=== PATIENT | male | born 1985 | race Hispanic/Latino ===

== ENCOUNTER 2023-11-17 18:17 | Emergency (ER) | payer OTHER, SELFPAY ==
[~2023-11-17 18:17] MED LIST: Iopamidol 370 76% 100 ML VIAL ONE
[2023-11-17 18:59] LABS: Bilirubin Negative (Negative); Blood, Urine Negative (Negative); Clarity Clear (Clear); Glucose, Urine (Dipstick) 500 mg/dL (Negative); Ketone, Urine Negative (Negative); Leukocyte Negative (Negative); Nitrite Negative (Negative); Protein, Urine (Dipstick) 100 mg/dL (Neg-Trace); Urobilinogen 0.2 mg/dL (Less than 2); pH, Urine 5.5 (5.0-9.0)
[2023-11-17 19:04] LABS: Specific Gravity, Urine 1.041 (1.002-1.036)
[2023-11-17 19:08] LABS: #Basophils 0.1 thou/uL (0.0-0.2); #Eosinphils 0.1 thou/uL (0.0-0.7); #Monocytes 0.7 thou/uL (0.11-0.59); #Neutrophils 5.6 thou/uL (1.40-6.50); %Basophils 1.1 % (0.0-1.0); %Eosinophils 1.5 % (0.0-10.0); %Lymphocytes 31.6 % (21.0-51.0); %Monocytes 7.1 % (0.0-10.0); %Neutrophils 58.7 % (42.0-75.0); Hematocrit 50.7 % (42.0-52.0); Hemoglobin 16.7 g/dL (14.0-18.0); Mean Corpuscular Hemoglobin 27.7 pg (27.0-31.0); Mean Corpuscular Volume 84.1 fl (78.0-98.0); Platelet Count 150 10x3/uL (130-400); RBC Distribution Width 12.4 % (11.5-14.5); Red Blood Cell (RBC) Count 6.03 mill/uL (4.70-6.10); White Blood Cell (WBC) Count 9.5 10x3/uL (4.8-10.8)
[2023-11-17 19:10] LABS: Platelet Adequacy Comment Appears Adequate
[2023-11-17 19:12] LABS: ALT (SGPT) 78 U/L (8-55); AST (SGOT) 29 U/L (5-34); Albumin 4.3 g/dL (3.5-5.0); Alkaline Phosphatase 135 U/L (40-110); Anion Gap 14 mmol/L (10-20); BUN (Urea Nitrogen) 14 mg/dL (8.9-20.6); Bilirubin, Total 0.8 mg/dL (0.2-1.2); Calc. Creatinine Clearance 0 mL/min (70-130); Calcium 9.1 mg/dL (7.8-10.44); Carbon Dioxide 22 mmol/L (22-29); Chloride 106 mmol/L (98-107); Estimated GFR 116; Globulin 3.1 g/dL (2.4-3.5); Glucose 284 mg/dL (70-105); Potassium 3.5 mmol/L (3.5-5.1); Protein, Total 7.4 g/dL (6.0-8.3); Sodium 138 mmol/L (136-145)
[2023-11-17 19:13] LABS: Bacteria/HPF Rare-Few HPF (None Seen); CAUTI Indications for Culture Pelvic or flank pain; Mucous/LPF Rare LPF (<2+); RBC/HPF None Seen HPF (0-3); Squamous Epithelial 0-3 HPF (0-3); Urine Culture Reflex No No; WBC/HPF 0-3 HPF (0-3)
== END 2023-11-17 20:37 | disposition home or self-care (01) ==
LOC: BURERS 18:17
DX: S13.4XXA Sprain of ligaments of cervical spine, initial encounter (principal); S39.011A Strain of muscle, fascia and tendon of abdomen, initial encounter; S29.011A Strain of muscle and tendon of front wall of thorax, initial encounter; E11.65 Type 2 diabetes mellitus with hyperglycemia; V89.2XXA Person injured in unspecified motor-vehicle accident, traffic, initial encounter
CPT/HCPCS: 70450; 71260; 72125; 74177; 80053; 81001; 85025; G0390; Q9967